=== PATIENT | male | born 2000 | race Caucasian/White ===

== ENCOUNTER → 2021-01-08 | Outpatient (CLI) | payer MEDICAID ==
[2021-01-08 14:50] LABS: APPEARANCE, URINE CLEAR (CLEAR); BACTERIA, URINE AUTO NEGATIVE (NEGATIVE); BILIRUBIN, URINE AUTO NEGATIVE (NEGATIVE); BLOOD, URINE BLOOD 1+ (NEGATIVE); COLOR, URINE YELLOW (YELLOW); GLUCOSE, URINE (UA) AUTO NEGATIVE (NEGATIVE); KETONE, URINE AUTO NEGATIVE (NEGATIVE); LEUKOCYTE ESTERASE, URINE AUTO NEGATIVE (NEGATIVE); NITRITE, URINE AUTO NEGATIVE (NEGATIVE); PROTEIN, URINE AUTO NEGATIVE (NEGATIVE); RBC, URINE AUTO 2 /HPF (0-3); SPECIFIC GRAVITY URINE AUTO 1.021 (1.002-1.035); SQUAMOUS EPITHELIAL CELL UR AU 0 /HPF (0-6); UROBILINOGEN, URINE AUTO 0.2 mg/dL (0.0-2.0); WBC, URINE AUTO 0 /HPF (0-3)
[2021-01-08 14:53] LABS: BASO # 0.1 10^3/uL (0.0-0.2); BASO % 0.7 % (0.0-1.0); EOS # 0.5 10^3/uL (0.0-0.5); EOS % 5.3 % (0.0-3.0); HEMATOCRIT 43.3 % (42.0-52.0); HEMOGLOBIN 14.6 g/dl (13.5-17.5); LYMPH # 2.7 10^3/uL (1.5-5.0); LYMPH % 28.9 % (24.0-44.0); MEAN CORPUSCULAR HEMOGLOBIN 30.8 pg (27.0-33.0); MEAN CORPUSCULAR HGB CONC 33.7 g/dl (32.0-36.5); MEAN CORPUSCULAR VOLUME 91.4 fl (80.0-96.0); MONO # 0.7 10^3/uL (0.0-0.8); MONO % 7.5 % (2.0-8.0); NEUTROPHILS # 5.3 10^3/uL (1.5-8.5); NEUTROPHILS % 57.1 % (36.0-66.0); PLATELET COUNT, AUTOMATED 294 10^3/uL (150-450); RED BLOOD COUNT 4.74 10^6/uL (4.30-6.10); WHITE BLOOD COUNT 9.2 10^3/uL (4.0-10.0)
[2021-01-08 15:22] LABS: ALBUMIN 3.9 GM/DL (3.2-5.2); ALT/SGPT 41 U/L (12-78); BILIRUBIN,TOTAL 0.2 MG/DL (0.2-1.0); BLOOD UREA NITROGEN 28 MG/DL (7-18); CALCIUM LEVEL 9.3 MG/DL (8.5-10.1); CARBON DIOXIDE LEVEL 30 MEQ/L (21-32); CHLORIDE LEVEL 102 MEQ/L (98-107); CREATININE FOR GFR 0.82 MG/DL (0.70-1.30); GLUCOSE, FASTING 92 MG/DL (70-100); POTASSIUM SERUM 4.1 MEQ/L (3.5-5.1); SODIUM LEVEL 138 MEQ/L (136-145)
[2021-01-08 15:23] LABS: HEPATITIS B SURFACE ANTIBODY POSITIVE (POSITIVE)
[2021-01-08 15:33] LABS: HEPATITIS B SURFACE ANTIGEN NEGATIVE (NEGATIVE)
[2021-01-08 16:01] LABS: HEPATITIS C VIRUS ABY INDEX < 0.0 INDEX (<0.8)
[2021-01-08 16:02] LABS: HIV 1&2 SCREEN CENTAUR NEGATIVE (NEGATIVE)
== END ==
LOC: M LAB 13:57
PROVIDERS: ATTEND Nurse Practitioner Family
DX: Z02.2 Encounter for examination for admission to residential institution (principal)

== ENCOUNTER 2021-01-17 16:57 | Emergency (ER) | payer MEDICAID ==
[~2021-01-17] VITALS: Ht 182.9 cm; Wt 86.5 kg
[2021-01-17 16:58] VITALS: BP 132/65
[2021-01-17] MEDS ORDERED: WELLTAB40 PO (17:39)
[2021-01-17] MEDS ORDERED: LIDOCAINE 1% MDV 20ML VIAL SC ONE (20:00)
[2021-01-17] MEDS ORDERED: NEOSPORIN OINT 0.9 GM PKT TOP ONE (20:40)
--- NOTE | 2021-01-18 16:57 | REP ---
INDICATION: trauma COMPARISON: None. TECHNIQUE: Four views right hand. FINDINGS: There is no evidence of acute fracture, dislocation, or intrinsic bone disease. IMPRESSION: No fracture or dislocation. A preliminary report was provided by [facility] at the time of the exam. <Electronically signed by Cullen Connor > 01/18/21 [id number]
== END 2021-01-17 20:42 | disposition home or self-care (01) ==
LOC: M ED 16:57
DX: S61.011A Laceration without foreign body of right thumb without damage to nail, initial encounter (principal); W26.8XXA Contact with other sharp object(s), not elsewhere classified, initial encounter; Y92.019 Unspecified place in single-family (private) house as the place of occurrence of the external cause; Y93.9 Activity, unspecified; Y99.9 Unspecified external cause status; Z91.010 Allergy to peanuts